=== PATIENT | male | born 1960 | race Caucasian/White ===

== ENCOUNTER → 2019-06-14 15:09 | Outpatient (CLI) | payer OTHER, SELFPAY ==
[2019-06-14 14:54] VITALS: BMI 20.9
--- NOTE | 2019-06-14 15:16 | RAD_ITS ---
STUDY: X-RAY - UNILATERAL RIBS ( RIGHT ) WITH CHEST REASON FOR EXAM: Male, 58 years old. Fall TECHNIQUE - RIBS: 2 view(s) of the ribs. TECHNIQUE - CHEST: Frontal view COMPARISON: None. FINDINGS - RIBS: There are no displaced rib fractures identified. FINDINGS - CHEST: The lungs are clear. There are no pleural effusions. There is no pneumothorax. The heart is normal in size. RAD/Ribs Uni Min 3V w/PA Chest IMPRESSION: RIBS: No displaced rib fracture identified. CHEST: Clear lungs. Electronically Signed: Adarsh Archer, at 15:33 EDT Tel , Service support ,
== END ==
PROVIDERS: Family Provider Physician Assistant; PCP Physician Assistant; Referring Provider Physician Assistant; Visit Provider Physician Assistant
DX: R07.89 Other chest pain (principal)
CPT/HCPCS: 71101

== ENCOUNTER → 2020-11-18 10:50 | Outpatient (CLI) | payer OTHER, SELFPAY ==
--- NOTE | 2020-11-18 13:22 | NEURO_ITS ---
NCS and/or EMG Patient Report Ordering Doctor: Michel Lopez DATE OF SERVICE: 11/18/20 Indication: Bilateral hand numbness and pain focused on the first two digits. Chronic neck pain with prior episodes of radiation down the right upper extremity. Evaluate for peripheral nerve injury. Findings: Nerve conduction studies were performed in the right and left upper extremities. The right median motor study recording the abductor pollicis brevis showed a normal amplitude, prolonged distal latency and borderline conduction velocity. The right ulnar motor study recording the abductor digiti minimi showed a normal amplitude, normal distal latency and borderline normal conduction velocity. No conduction block or focal slowing was present across the elbow. The right median sensory response recording digit two showed a mildly reduced amplitude, prolonged latency and slowed conduction velocity. The right ulnar sensory response recording digit five showed a normal amplitude, latency and conduction velocity. The right radial sensory response recording over the extensor snuff box showed a normal amplitude, normal latency and borderline conduction velocity. The left median motor study recording the abductor pollicis brevis showed a normal amplitude, prolonged distal latency and borderline conduction velocity. The left ulnar motor study recording the abductor digiti minimi showed a normal amplitude, normal distal latency and normal conduction velocity. No conduction block or focal slowing was present across the elbow. The left median sensory response recording digit two showed a reduced amplitude, prolonged latency and slowed conduction velocity. The left ulnar sensory response recording digit five showed a normal amplitude, latency and conduction velocity. The left radial sensory response recording over the extensor snuff box showed a normal amplitude, latency and conduction velocity. Needle EMG of the right upper extremity and cervical paraspinal muscles was performed. Active denervation was present in the extensor indicis and cervical paraspinal muscles. Motor units were large amplitude, long duration and polyphasic in the flexor carpi radialis, triceps, extensor indicis, first dorsal interosseous and abductor pollicis brevis muscles. All other muscles (biceps, deltoid, brachioradialis) demonstrated normal motor unit morphology, activation and recruitment patterns. Needle EMG of the left upper extremity and cervical paraspinal muscles was performed. Active denervation was present in the abductor pollicis brevis muscle. Motor units in the abductor pollicis brevis were long duration and polyphasic with reduced recruitment. All other muscles (deltoid, triceps, first dorsal interosseous) demonstrated normal motor unit morphology, activation and recruitment patterns. Impression: This is an abnormal and complex study. There is electrophysiologic evidence consistent with: 1. 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 There is active denervation of the thenar muscles, suggestive of ongoing axonal loss. 2. A mild right median neuropathy across the wrist. 3. A mild, chronic, right C6/7 radiculopathy. 4. A moderate, active and chronic, right C8/T1 radiculopathy with active denervation to the right extensor indicis proprius muscle. Thus, the patient has a double crush, two separate conditions that may result in upper extremity pain and similar sensory symptoms (#2,3,4). Clinical correlation is needed in helping to determine the relative contributions of the two to the patients symptoms. Lastly, please note: because of the two co- existent conditions, this study would be theoretically insensitive in detecting an additional superimposed brachial plexopathy. David Patel D.O.
== END ==
PROVIDERS: PCP Family Medicine; Referring Provider Orthopaedic Surgery; Visit Provider Orthopaedic Surgery
DX: M50.30 Other cervical disc degeneration, unspecified cervical region (principal); M47.22 Other spondylosis with radiculopathy, cervical region
CPT/HCPCS: 95886; 95911

== ENCOUNTER 2021-01-07 09:55 | Outpatient (RCR) | payer OTHER, SELFPAY ==
[2021-01-07] MEDS: COVID-19 VACC, MRNA(PFIZER)/PF 30 MCG/0.3 ML SYRINGE IM (10:24)
[2021-01-28] MEDS: COVID-19 VACC, MRNA(PFIZER)/PF 30 MCG/0.3 ML SYRINGE IM (10:26)
== END 2021-04-01 23:59 ==
LOC: IMMUN 09:55
PROVIDERS: PCP Family Medicine; Visit Provider Family Medicine
DX: Z23 Encounter for immunization (principal)
CPT/HCPCS: 0001A; 0002A; 91300

== ENCOUNTER 2021-03-12 09:57 | Emergency (ER) | payer OTHER, SELFPAY ==
[2021-03-12 09:58] VITALS: BP 159/102; PULSE 118; RESP 16; TEMP 37.7; O2SAT 98; BMI 22.6
--- NOTE | 2021-03-12 10:10 | EDS_ITS ---
HPI History of Present Illness Chief Complaint: Upper Extremity Injury Informant: patient Onset/Context/Timing Onset: Today Current Severity: Mild Maximum Severity: Moderate Narrative Narrative: Patient presents secondary to fever, chills, left elbow pain and swelling that started at 1 AM this morning. Patient was recently in [place] and returned home 3 days ago. While there he had sustained some abrasions to his left elbow and then went swimming in the [place]. That is the only source of infection the patient can think of at this time. He denies cough, shortness of breath, abdominal pain, nausea, or vomiting. Last dose of Tylenol was 4-1/2 hours ago. [facility] Medical History (Updated 03/12/21 @ 12:[address] Adina Barrientos MD) Cervical radiculopathy Hypertension Home Medications hydrochlorothiazide 25 mg tablet 25 mg PO DAILY 09/20/20 [History Last Taken Unknown] lisinopril 20 mg tablet 20 mg PO DAILY 09/20/20 [History Last Taken Unknown] cephalexin 500 mg PO Q6H 10 Days #40 cap 03/12/21 [Rx Last Taken Unknown] gabapentin 100 mg PO TID 03/12/21 [History Last Taken Unknown] sulfamethoxazole-trimethoprim [Bactrim DS] 1 tab PO Q12H #20 tab 03/12/21 [Rx Last Taken Unknown] Allergy/AdvReac Type Severity Reaction Status Date / Time venom-honey bee Allergy Anaphylaxis Verified 05/07/17 10:29 [bee venom (honey bee)] ANTIHISTIMINE AdvReac Mild JITTERY Uncoded 05/07/17 10:05 Surgical History (Updated 03/12/21 @ 10:54 by Marko Nichole) History of right hip replacement Social History Smoking Status: Current every day smoker ROS ROS ED Constitutional Constitutional ED: Reports fever(s); Denies chills Eyes Eyes: Denies change in vision ENT ENT ED: Denies sore throat Cardiovascular Cardiovascular: Denies chest pain Respiratory/Chest Respiratory/Chest: Denies cough or dyspnea Gastrointestinal Gastrointestinal: Denies abdominal pain, diarrhea, nausea or vomiting Genitourinary Genitourinary ED: Denies dysuria Musculoskeletal Musculoskeletal: Reports other Details: Left elbow pain Integumentary Reports Abrasions and rash Neurologic Neurologic: Denies headache(s) or weakness Psychiatric Psychiatric: Denies anxiety or depression Endocrine Endocrinology: Denies polydipsia or polyuria Allergic/Immunologic Allergic/Immunologic ED: Denies urticaria EXAM Physical Exam Const Vital Signs: 03/12/21 09:58 Temperature 99.8 F H Temperature Source Temporal Pulse Rate 118 H Respiratory Rate 16 Blood Pressure 159/102 H Blood Pressure Mean 121 Pulse Ox 98 Oxygen Delivery Method Room Air Positive well nourished and well developed General Appearance ED: well developed HEENT Reports normocephalic and head/scalp atraumatic Eyes PERRL and EOMs intact bilaterally Neck supple Chest Wall inspection of chest normal and palpation of chest normal Resp normal respiratory effort and clear to auscultation bilaterally Cardio regular rate and regular rhythm GI normal to inspection, nondistended, normoactive bowel sounds Palpation: soft Back/Spine no CVA tenderness Extremity Extremity Narrative: Scab noted over the extensor portion of the elbow with surrounding erythema. No focal fluctuance. No drainage. Full range of motion at the elbow joint without difficulty. Neuro oriented x3 and no sensory deficits noted Sensorium / Orientation: alert Motor Exam: strength 5/5 throughout Psych mental status grossly normal Skin no rashes or lesions noted MDM MDM MDM Narrative Medical decision making narrative: Patient was given a dose of vancomycin. Blood cultures were obtained. Lab Data Labs: Laboratory Results 03/12/21 03/12/21 03/12/21 11:43 10:35 10:35 WBC 8.6 RBC 4.72 Hgb 14.9 Hct 44.8 MCV 94.9 H MCH 31.6 MCHC 33.3 RDW Std Deviation 45.1 H RDW Coeff of Tashia 12.9 Plt Count 226 MPV 9.0 Immature Gran % (Auto) 0.800 Neut % (Auto) 90.1 H Lymph % (Auto) 2.7 L [place] % (Auto) 6.1 Eos % (Auto) 0.0 Baso % (Auto) 0.3 Absolute Neuts (auto) 7.7 Absolute Lymphs (auto) 0.23 L Nucleated RBC % 0 Sodium 135 L Cancelled Potassium 3.8 Cancelled Chloride 100 Cancelled Carbon Dioxide 30.0 Cancelled Anion Gap 5 Cancelled BUN 13 Cancelled Creatinine 0.84 Cancelled Estim Creat Clear Calc 84.00 Cancelled Est GFR (MDRD) Af Amer 119 Cancelled Est GFR (MDRD) Non-Af 99 Cancelled BUN/Creatinine Ratio 15.4 Cancelled Glucose 113 H Cancelled Calcium 9.3 Cancelled Treatment and Re-Evaluation Comments:: Blood work is unremarkable at this time. Wound will be cleansed and area of erythema outlined. Patient be treated with Bactrim and Keflex. Return instructions are provided. Discharge Plan Triage Chief Complaint: Upper Extremity Injury ED Provider: Adina Barrientos Dx/Rx/DC Orders Clinical Impression: Cellulitis Instructions: ED Cellulitis Prescriptions: New sulfamethoxazole-trimethoprim [Bactrim DS] 800-160 mg tablet 1 tab PO Q12H Qty: 20 RF: 0 cephalexin 500 mg capsule 500 mg PO Q6H 10 Days Qty: 40 RF: 0 No Action hydrochlorothiazide 25 mg tablet 25 mg PO DAILY RF: 0 lisinopril 20 mg tablet 20 mg PO DAILY RF: 0 gabapentin 100 mg capsule 100 mg PO TID RF: 0 Primary Care Provider: Miguel Angel Tripp Referrals: Miguel Angel Tripp MD [Primary Care Provider] - 5-7 Days Disposition Disposition: Home, self care
[2021-03-12] MEDS: 0.9% Normal Saline 1,000 ML 1000 ML IV (10:52)
[2021-03-12 10:53] LABS: Absolute Lymphocyte Count 0.23 X10^3/uL (0.83-4.51); Absolute Neutrophil Count 7.7 X10^3/uL (2.0-7.7); Basophil# 0.03 X10^3/uL; Basophil% 0.3 % (0-1); Hematocrit 44.8 % (40-54); Hemoglobin 14.9 g/dL (13.0-16.5); Lymphocyte # 0.23 X10^3/ul (0.83-4.51); Lymphocyte % 2.7 % (19-41); Mean Corp Hgb Conc 33.3 g/dL (32-36); Mean Corpuscular Hgb 31.6 pg (27.0-32.0); Mean Corpuscular Volume 94.9 fL (80-94); Monocyte# 0.52 X10^3/uL; Monocyte% 6.1 % (0-10); NRBC Flagged by Analyzer 0 % (0-5); Neutrophil # 7.73 X10^3/uL (2.7-7.7); Neutrophil % 90.1 % (47-70); POSITIVE DIFFERENTIAL YES; Platelet Count 226 K/mm3 (150-450); RBC Distribution Width CV 12.9 % (11.6-14.6); RBC Distribution Width SD 45.1 fl (35.1-43.9); Red Blood Count 4.72 M/mm3 (4.6-6.2); White Blood Count 8.6 K/mm3 (4.4-11.0)
[2021-03-12] MEDS: Vancomycin IV 1,000 MG/200 ML BAG 200 MG IV (10:54)
[2021-03-12 11:06] LABS: Differential Indicated SCAN CRITERIA MET
--- NOTE | 2021-03-12 11:25 | NURSING ---
PER JOSEPH ASHBY, GREEN TOP HEMOLIZED
[2021-03-12 12:03] LABS: Anion Gap 5 (5-15); BUN 13 mg/dL (7-18); BUN/Creat Ratio 15.4 RATIO (10-20); Calcium,Total 9.3 mg/dL (8.5-10.1); Chloride 100 mmol/L (98-107); Creatinine, Serum 0.84 mg/dL (0.70-1.30); EST Glomerular Filtration Rate 99 mL/min (>60); Est Glom Filt Rate - Afr Amer 119 mL/min (>60); Glucose 113 mg/dL (74-106); Potassium 3.8 mmol/L (3.5-5.1); Sodium Level 135 mmol/L (136-145)
[2021-03-12 12:38] VITALS: BP 149/85; PULSE 100; RESP 18; O2SAT 94
== END 2021-03-12 12:40 | disposition home or self-care (01) ==
PROVIDERS: Emergency Provider Emergency Medicine; PCP Family Medicine
DX: L03.114 Cellulitis of left upper limb (principal); F17.200 Nicotine dependence, unspecified, uncomplicated; I10 Essential (primary) hypertension; Z79.899 Other long term (current) drug therapy
CPT/HCPCS: 80048; 85025; 87040; 96365; 96366; 99283; J7030; A4216

== ENCOUNTER → 2021-04-11 14:12 | Outpatient (CLI) | payer OTHER, SELFPAY ==
[2021-03-12 09:58] VITALS: BMI 22.6
--- NOTE | 2021-04-11 14:10 | RAD_ITS ---
STUDY: X-RAY - LEFT SHOULDER REASON FOR EXAM: Male, 60 years old. LEFT SHOULDER PAIN TECHNIQUE: 4 view(s) of the shoulder. COMPARISON: None. FINDINGS: Normal glenohumeral articulation. There is degenerative arthrosis of the acromioclavicular joint without inferior osseous spur formation. Normal acromion. Normal humeral head and visualized proximal humerus. The soft tissue structures are unremarkable. Normal visualized pulmonary apex. 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 Electronically Signed: Julius Love MD at 15:09 EDT , Service support ,
== END ==
PROVIDERS: PCP Family Medicine; Referring Provider Anesthesiology Pain Medicine; Visit Provider Anesthesiology Pain Medicine
DX: M25.512 Pain in left shoulder (principal)
CPT/HCPCS: 73030

== ENCOUNTER 2022-08-23 15:30 | Emergency (ER) | payer OTHER, SELFPAY ==
[2022-08-23 15:31] VITALS: BP 175/99; PULSE 95; RESP 14; TEMP 36.2; O2SAT 97; BMI 23.3
--- NOTE | 2022-08-23 15:48 | RAD_ITS ---
STUDY: X-RAY - PELVIS AND RIGHT HIP REASON FOR EXAM: Male, 61 years old. pain TECHNIQUE: 3 views of the pelvis and hip. COMPARISON: None. FINDINGS: There is a non-specific bowel gas pattern. Normal visualized soft tissue structures. Normal bilateral iliac wings, sacroiliac joints and visualized sacrum. Normal bilateral superior and inferior pubic rami. Normal pubic symphysis. Normal bilateral ischial tuberosities. Status post right hip arthroplasty. The prosthesis appears located. No ostial lysis to suggest loosening.. RAD/HIP, UNI W/ Pelvis 2-3 Views IMPRESSION: Normal x-ray examination of the pelvis and hip after arthroplasty. Electronically Signed: Huy Grayson MD at 16:21 EDT ,
--- NOTE | 2022-08-23 15:56 | EDS_ITS ---
HPI History of Present Illness Chief Complaint: Lower Extremity Injury Narrative Narrative: Patient is status post a hip replacement 6 years ago, he was on the tractor for 3 hours yesterday and then pushed mowed his grass for half hour today, he started having some right hip pain which got much worse and now he is not able to ambulate. No other trauma. Pain is in the groin and buttock as well as lateral hip. No fevers or chills. Pain just started few hours ago. [facility] Medical History (Updated 08/23/22 @ 17:[address] Leodan Davidson MD) Cervical radiculopathy Hypertension Home Medications hydrochlorothiazide 25 mg tablet 25 mg PO DAILY 09/20/20 [History Last Taken Unknown] lisinopril 20 mg tablet 20 mg PO DAILY 09/20/20 [History Last Taken Unknown] cephalexin 500 mg capsule 500 mg PO Q6H 10 days #40 caps 03/12/21 [Rx Last Taken Unknown] gabapentin 100 mg capsule 100 mg PO TID 03/12/21 [History Last Taken Unknown] sulfamethoxazole 800 mg-trimethoprim 160 mg tablet (Bactrim DS) 1 tab PO Q12H #20 tabs 03/12/21 [Rx Last Taken Unknown] oxycodone-acetaminophen 5 mg-325 mg tablet (Endocet) 1 tab PO Q6H PRN pain 3 days #12 tabs 08/23/22 [Rx Last Taken Unknown] Allergy/AdvReac Type Severity Reaction Status Date / Time venom-honey bee Allergy Anaphylaxis Verified 08/23/22 15:53 [bee venom (honey bee)] ANTIHISTIMINE AdvReac Mild JITTERY Uncoded 08/23/22 15:53 Surgical History History of right hip replacement Social History Smoking Status: Current every day smoker tobacco type: cigarettes ROS ROS ED ROS Narrative Past medical history: none Medications: Reviewed Social history: Continues to smoke Review of systems: Musculoskeletal: Right hip pain as in HPI Skin: No abrasions or lacerations Neurological: No weakness or paresthesias Hematologic: No easy bleeding or easy bruising EXAM Physical Exam Narrative Exam Narrative: Physical exam General: Patient appears uncomfortable. Head: Normocephalic, Atraumatic Neck: No C-spine tenderness Cardiovascular: Normal distal pulses Back: Nontender, Normal Inspection. Extremities: Right hip shows tenderness in the groin lateral and buttock region, there is pain to logrolling but it is mild most of the pain is palpation over the groin and buttock region. Some tenderness over the greater trochanter. Normal flexion and extension other than the pain. Skin: No abrasions, no lacerations Neurological: Normal strength and sensation Const Vital Signs: 08/23/22 15:31 Temperature 97.2 F L Temperature Source Temporal Pulse Rate 95 Respiratory Rate 14 Blood Pressure 175/99 H Blood Pressure Mean 124 Pulse Ox 97 Oxygen Delivery Method Room Air MDM MDM MDM Narrative Medical decision making narrative: Patient's x-rays are unremarkable. I will treat him with analgesia and he is to follow-up with [facility]. Radiography Diagnostic Testing: Clinical Impression(s) from Imaging Studies Hip/Pelvis X-Ray 08/23/22 15:48 IMPRESSION: Normal x-ray examination of the pelvis and hip after arthroplasty. Electronically Signed: Huy Grayson MD at 16:21 EDT , Right hip x-ray read by me and radiologist as unremarkable Discharge Plan Triage Chief Complaint: Lower Extremity Injury ED Provider: Leodan Davidson Dx/Rx/DC Orders Clinical Impression: Acute hip pain, Contusion of hip Instructions: ED Hip Contusion Prescriptions: New oxycodone-acetaminophen [Endocet] 5-325 mg tablet 1 tab PO Q6H PRN (Reason: pain) 3 Days Qty: 12 0RF No Action hydrochlorothiazide 25 mg tablet 25 mg PO DAILY lisinopril 20 mg tablet 20 mg PO DAILY gabapentin 100 mg capsule 100 mg PO TID sulfamethoxazole-trimethoprim [Bactrim DS] 800-160 mg tablet 1 tab PO Q12H Qty: 20 0RF cephalexin 500 mg capsule 500 mg PO Q6H 10 Days Qty: 40 0RF Primary Care Provider: Miguel Angel Tripp Referrals: Miguel Angel Tripp MD [Primary Care Provider] - 3-5 Days Disposition Disposition: Home, Self Care
[2022-08-23] MEDS: HYDROmorphone 0.5 MG/0.5 ML SYRINGE IM (16:00)
== END 2022-08-23 17:28 | disposition home or self-care (01) ==
PROVIDERS: Emergency Provider Emergency Medicine; PCP Family Medicine; Visit Provider Emergency Medicine
DX: S70.01XA Contusion of right hip, initial encounter (principal); M25.551 Pain in right hip; F17.210 Nicotine dependence, cigarettes, uncomplicated; X58.XXXA Exposure to other specified factors, initial encounter
CPT/HCPCS: 73502; 96372; 99282

== ENCOUNTER 2024-10-16 07:42 | Emergency (ER) | payer OTHER, SELFPAY ==
[2024-10-16 07:43] VITALS: BP 154/83; PULSE 88; RESP 14; TEMP 37.1; O2SAT 97; BMI 22.6
--- NOTE | 2024-10-16 08:01 | EX.ED.DYSGE1 ---
HPI History of Present Illness Chief Complaint: Wound Detail of Chief Complaint: Abscess near the webspace fourth and fifth little toe Informant: patient and PCP (Dr. Bains called in prior to his arrival and inform me of patient's treatment.) Onset/Context/Timing Onset: Days Context: Gradual Onset Timing: Continuous Quality: Tinea pedis that resulted in cellulitis and now abscess Location: Webspace of the right fourth and fifth toe Current Severity: Mild Maximum Severity: Mild Worsened by: Nothing specific Relieved by: Nothing Associated Symptoms Associated Symptoms: No constitutional symptoms Narrative Narrative: Patient is 63-year-old male. He is a smoker. He denies history of diabetes. He denies symptoms of claudication. He denies fever, chills night sweats. He was diagnosed with tinea pedis webspace of the fourth and fifth toe that was treated with antifungal cream and was placed on cephalexin because he had cellulitis. The cellulitis did not improve on reevaluation. He was then prescribed clindamycin. Patient was seen by his doctor today and sent to the ER because he has an abscess. He denies any other symptoms. Prior similar symptoms: Yes (25 years ago) Recent Illness/Hospitalization: Yes (Recent foot infection as described in the narrative portion of the EMR) [facility] Medical History Acute sinusitis, unspecified Cervical radiculopathy Hypertension Home Medications ?Medication ?Instructions ?Recorded ?Last Taken ?Type hydrochlorothiazide 25 mg tablet 25 mg PO DAILY 09/20/20 Unknown History lisinopril 20 mg tablet 20 mg PO DAILY 09/20/20 Unknown History cephalexin 500 mg capsule 500 mg PO Q6H 10 days #40 caps 03/12/21 Unknown Rx gabapentin 100 mg capsule 100 mg PO TID 03/12/21 Unknown History sulfamethoxazole 800 1 tab PO Q12H #20 tabs 03/12/21 Unknown Rx mg-trimethoprim 160 mg tablet (Bactrim DS) oxycodone-acetaminophen 5 mg-325 1 tab PO Q6H PRN pain 3 days #12 08/23/22 Unknown Rx mg tablet (Endocet) tabs amoxicillin 875 mg-potassium 1 tab PO BID #20 tabs 02/17/23 Unknown Rx clavulanate 125 mg tablet Allergy/AdvReac Type Severity Reaction Status Date / Time venom-honey bee (bee venom Allergy Anaphylaxis Verified 10/16/24 07:43 (honey bee)) Family History Grandfather Hypertension Surgical History History of right hip replacement Social History Smoking Status: Current every day smoker tobacco type: cigarettes ROS ROS ED Constitutional Constitutional ED: Denies chills, fever(s), subjective or sweats Eyes Eyes: Denies blurry vision or change in vision Cardiovascular Cardiovascular: Reports other Details: There is no history of rheumatic fever, heart murmur, mitral prolapse or SBE. ; Denies chest pain or palpitations Respiratory/Chest Respiratory/Chest: Denies cough or dyspnea Gastrointestinal Gastrointestinal: Denies nausea or vomiting Integumentary Reports abscess and rash Hematologic/Lymphatic Hematologic/Lymphatic: Reports systems reviewed and no addt'l complaints, except as documented EXAM Physical Exam Const Vital Signs: 10/16/24 07:43 Temperature 98.7 F Temperature Source Temporal Pulse Rate 88 Respiratory Rate 14 Blood Pressure 154/83 H Blood Pressure Mean 106 Pulse Ox 97 Oxygen Delivery Method Room Air Positive well nourished and well developed General Appearance ED: well developed and NAD HEENT Reports moist mucous membranes HEENT Narrative: Head is atraumatic and normocephalic. Eyes PERRL and EOMs intact bilaterally Neck no lymphadenopathy, supple and no JVD Resp normal respiratory effort and clear to auscultation bilaterally Cardio regular rate, regular rhythm, S1 normal heart sound, S2 normal heart sound and no murmurs Extremity Extremity Narrative: Area of discoloration proximal of the right fourth and fifth toe. There is an area of fluctuance webspace of the fourth and fifth toe. There is evidence of prior tinea infection which is resolving. There is no lymphangitis. There is no popliteal lymphadenopathy. Capillary refill is normal. Sensation is normal. Neuro oriented x3 and CN's II-XII intact bilaterally Sensorium / Orientation: alert Psych mental status grossly normal Skin No no rashes or lesions noted and No no wounds Skin Narrative: Described elsewhere in the EMR MDM MDM MDM Narrative Medical decision making narrative: Patient has an abscess which required drainage. Patient was consented for I&D of abscess. Orders were entered for I&D set up. Since patient is not febrile there is no lymphangitis and he has no constant symptoms in my opinion laboratory testing and imaging is not warranted at this time. History & Record Review Additional record(s) reviewed:: Prior outpatient record (Patient per outside records in case he has history of hypertension. He has had cellulitis in the remote past.) Procedures Other Procedures Procedure(s): Patient was explained risk benefits of I&D. Consent was obtained. Procedure note: Patient was prepped in a sterile fashion. Wound was anesthetized with 1% lidocaine by local filtration. 1.5 cc was infused. Using a 15 blade a 6 mm incision was made. There was significant purulent material that drained. Cavity was irrigated. Wick was placed. Patient was instructed continue taking the antibiotics he was prescribed. Discharge Plan Triage Chief Complaint: Wound ED Provider: Antony Montes Dx/Rx/DC Orders Clinical Impression: Abscess of right foot, Tinea pedis, Tobacco use, Elevated blood pressure reading with diagnosis of hypertension Instructions: ED Abscess Incision And Drainage Prescriptions: No Action hydrochlorothiazide 25 mg tablet 25 mg PO DAILY lisinopril 20 mg tablet 20 mg PO DAILY amoxicillin-pot clavulanate 875-125 mg tablet 1 tab PO BID Qty: 20 0RF gabapentin 100 mg capsule 100 mg PO TID sulfamethoxazole-trimethoprim [Bactrim DS] 800-160 mg tablet 1 tab PO Q12H Qty: 20 0RF cephalexin 500 mg capsule 500 mg PO Q6H 10 Days Qty: 40 0RF oxycodone-acetaminophen [Endocet] 5-325 mg tablet 1 tab PO Q6H PRN (Reason: pain) 3 Days Qty: 12 0RF Primary Care Provider: Miguel Angel Tripp Referrals: Miguel Angel Tripp MD [Primary Care Provider] - 2 Days for wound check Activity Restrictions/Additional Instructions: 1. Keep foot/wound clean and dry 2. Take antibiotics as prescribed until gone 3. Have wick removed in 2 days. Since [place] is in 2 days recommend day after [place]. Print Language: Khmer Disposition Disposition: Home, Self Care
[2024-10-16] MEDS: Lidocaine 1% (20 ml mdv) 20 ML Vial INFILT (08:05)
== END 2024-10-16 08:39 | disposition home or self-care (01) ==
PROVIDERS: Emergency Provider Emergency Medicine; PCP Family Medicine; Visit Provider Emergency Medicine
DX: L02.611 Cutaneous abscess of right foot (principal); I10 Essential (primary) hypertension; B35.3 Tinea pedis; M54.12 Radiculopathy, cervical region; F17.210 Nicotine dependence, cigarettes, uncomplicated; Z79.899 Other long term (current) drug therapy; Z96.641 Presence of right artificial hip joint
CPT/HCPCS: 10060; 99282